=== PATIENT | female | born 2000 | race Two or more races ===

== ENCOUNTER → 2022-12-27 | Emergency (ER) | payer OTHER ==
[~2022-12-27] VITALS: Ht 154.9 cm; Wt 76.2 kg
[~2022-12-27] MED LIST: ATIVAN0.5 M1 PO; CITALOPRAM20 MG/10 M PO; [UNRECOGNIZED DRUG - OTHER] SUBCUTANEO
== END | disposition home or self-care (01) ==
LOC: ER 21:04
DX: F41.0 Panic disorder [episodic paroxysmal anxiety] (principal); Z20.822 Contact with and (suspected) exposure to COVID-19; Z91.013 Allergy to seafood

== ENCOUNTER 2023-01-16 09:21 | Outpatient (CLI) | payer OTHER | END 2023-01-16 09:30 | disposition home or self-care (01) | LOC: TOM 09:21 | DX: G40.89 Other seizures (principal) ==

== ENCOUNTER 2023-01-28 03:00 | Emergency (ER) | payer OTHER ==
[~2023-01-28] VITALS: Ht 154.9 cm; Wt 77.1 kg
== END 2023-01-28 04:17 | disposition home or self-care (01) ==
LOC: ER 03:00
DX: F41.9 Anxiety disorder, unspecified (principal); Z91.013 Allergy to seafood

== ENCOUNTER 2023-01-29 03:52 | Emergency (ER) | payer OTHER ==
[~2023-01-29] VITALS: Ht 154.9 cm; Wt 77.1 kg
== END 2023-01-29 05:25 | disposition home or self-care (01) ==
LOC: ER 03:52
DX: R06.02 Shortness of breath (principal)

== ENCOUNTER 2023-01-29 07:02 | Emergency (ER) | payer OTHER ==
[~2023-01-29] VITALS: Ht 154.9 cm; Wt 77.1 kg
== END 2023-01-29 08:35 | disposition home or self-care (01) ==
LOC: ER 07:02
DX: F41.8 Other specified anxiety disorders (principal)

== ENCOUNTER → 2023-06-20 | Emergency (ER) | payer OTHER ==
[~2023-06-20] VITALS: Ht 154.9 cm; Wt 81.6 kg
== END | disposition left against medical advice (07) ==
LOC: ER 04:40
DX: Z53.21 Procedure and treatment not carried out due to patient leaving prior to being seen by health care provider (principal)

== ENCOUNTER → 2024-01-27 | Emergency (ER) | payer OTHER ==
[~2024-01-27] VITALS: Ht 154.9 cm; Wt 113.4 kg
[~2024-01-27] MED LIST changes: +ATIVAN1 M1 PO; +DIPHENHYDRAMINE HCL 50 MG/ML VIAL 1ML IM STA; +HALOPERIDOL LACTATE 5 MG/ML AMPUL IM STA; +VISTARIL25 MG PO
[2024-01-27 04:20] LABS: CALCIUM 9.4 mg/dL (8.5-10.1); CREATININE SERUM 0.59 mg/dL (0.55-1.02); POTASSIUM 3.62 mEq/L (3.5-5.1)
[2024-01-27 04:37] LABS: GFR 124.19
[2024-01-27 04:39] LABS: HEMATOCRIT 35.6 % (36.0-45.00); HEMOGLOBIN 11.9 g/dL (12.0-15.00); MEAN CORPUSCULAR HEMOGLOBIN 24.8 pg (27.00-32.0); MEAN CORPUSCULAR HGB CONC 33.5 g/dl (32.0-36.0); PLATELET COUNT 315 K/uL (150-450); RED BLOOD COUNT 4.81 M/uL (4.00-6.00); RED CELL DISTRIBUTION WIDTH 15.6 % (11.5-14.5)
== END | disposition left against medical advice (07) ==
LOC: ER 02:00
DX: F41.9 Anxiety disorder, unspecified (principal); Z91.013 Allergy to seafood

== ENCOUNTER 2024-06-24 03:24 | Emergency (ER) | payer OTHER ==
[~2024-06-24] VITALS: Ht 154.9 cm; Wt 90.7 kg
[~2024-06-24 03:24] MED LIST changes: -DIPHENHYDRAMINE HCL 50 MG/ML VIAL 1ML IM STA; -HALOPERIDOL LACTATE 5 MG/ML AMPUL IM STA
[2024-06-24] MEDS ORDERED: LEVALBUTEROL HCL 0.63 MG/3 ML SOLUTION IH SCH (06:00)
[2024-06-24 08:08] LABS: HEMATOCRIT 36.5 % (36.0-45.00); HEMOGLOBIN 11.6 g/dL (12.0-15.00); MEAN CELL VOLUME 73.5 fL (80.00-100.00); MEAN CORPUSCULAR HEMOGLOBIN 23.3 pg (27.00-32.0); MEAN CORPUSCULAR HGB CONC 31.7 g/dl (32.0-36.0); PLATELET COUNT 287 K/uL (150-450); RED BLOOD COUNT 4.97 M/uL (4.00-6.00); RED CELL DISTRIBUTION WIDTH 16.5 % (11.5-14.5)
== END 2024-06-24 10:43 | disposition home or self-care (01) ==
LOC: ER 03:24
PROVIDERS: General Practice
DX: R07.9 Chest pain, unspecified (principal); J06.9 Acute upper respiratory infection, unspecified; Z91.013 Allergy to seafood; Z20.822 Contact with and (suspected) exposure to COVID-19; J45.909 Unspecified asthma, uncomplicated